=== PATIENT | female | born 1995 | race African-American/Black ===

== ENCOUNTER 2019-09-24 18:18 | Emergency (ER) | payer MEDICAID ==
[~2019-09-24] VITALS: Ht 160 cm; Wt 42.6 kg
--- NOTE | 2019-09-24 18:39 | Emergency Room Report ---
History of Present Illness General Chief Complaint: Pain Source: Patient Present Illness HPI Patient is a 24-year-old female who presents after increased left ankle pain. Pain has been present for approximately 3 weeks after trauma. Patient states that she had struck her ankle on a plastic cart and subsequently began having pain. She been able to ambulate normally since then. Reports having pain to light touch. Denies any fever. Denies any other locations of injury. She is unsure if she is . Allergies: Coded Allergies: No Known Allergies (Unverified , 09/24/19) COVID-19 Screening Contact w/high risk pt: No Recent Travel to affected area: No Experienced COVID-19 symptoms?: No COVID-19 Testing performed SCHOOL COORDINATOR: No Patient History Past Medical History: see triage record Last Menstrual Period: 08/30/19 Reviewed Nursing Documentation: PMH: Agreed; PSxH: Agreed Nursing Documentation-PM Past Medical History: No Stated History Review of Systems All Other Systems: negative except mentioned in HPI Physical Exam Vital Signs Date Time Temp Pulse Resp B/P (MAP) Pulse Ox O2 Delivery O2 Flow Rate FiO2 09/24/19 18:29 98.8 87 17 106/64 (78) 98 Room Air Sp02 EP Interpretation: reviewed, normal General Appearance: normal inspection, well appearing, no apparent distress, alert, GCS 15, non-toxic Head: atraumatic ENT: normal ENT inspection, hearing grossly normal, normal voice Neck: normal inspection, full range of motion, supple, no bony tend Respiratory: normal inspection, lungs clear, normal breath sounds, no respiratory distress, no retraction, no wheezing Cardiovascular #1: regular rate, rhythm, no edema Gastrointestinal: normal inspection, normal bowel sounds, non tender, soft, no guarding, no hernia Genitourinary: no CVA tenderness Musculoskeletal: normal inspection, back normal, normal range of motion Neurologic: alert, motor strength/tone normal, annual campaign manager III-XII nml as tested, oriented x3, responsive, speech normal, normal inspection Psychiatric: normal inspection, judgement/insight normal, mood/affect normal Skin: no rash Medical Decision Making Diagnostic Impression: Primary Impression: Ankle pain, left ER Course Presented for left ankle pain. Differential diagnosis include was not limited to fracture, contusion, sprain among others. Extremity x-ray was ordered due to patient's reported trauma. Patient does not appear to have any evidence of swelling or deformity. Patient was given Douglas wrap. No evidence of infection. she appears to be stable for outpatient follow-up. She was advised to follow- up with her primary care physician for recheck. Last Vital Signs Date Time Temp Pulse Resp B/P (MAP) Pulse Ox O2 Delivery O2 Flow Rate FiO2 09/24/19 18:29 98.8 87 17 106/64 (78) 98 Room Air Status: improved Disposition: HOME, SELF-CARE Condition: Stable Scripts Ibuprofen* (MOTRIN*) 600 Mg Tablet 600 MG ORAL Q8H PRN for FOR PAIN, #30 TAB 0 Refills Prov: Roberto Brand MD 09/24/19 Acetaminophen* (ACETAMINOPHEN EXTRA STRENGTH*) 500 Mg Tablet 500 MG ORAL Q8H PRN for Fever/Headache/Mild Pain, #30 TAB Prov: Roberto Brand MD 09/24/19 Roberto Brand MD Sep 24, 2019 18:39
[2019-09-24 19:00] VITALS: BP 112/66
[2019-09-24] MEDS ORDERED: ACETAMINOPHEN500 M3 ORAL (19:02)
[2019-09-24] MEDS ORDERED: IBUPROFEN600 M1 ORAL (19:02)
[2019-09-24 19:10] VITALS: BP 112/66
--- NOTE | 2019-09-25 12:07 | Diagnostic Imaging Report ---
EXAM: X-RAY XRAY Ankle Compl Min 3v L CLINICAL HISTORY: Ankle pain. COMPARISON: None FINDINGS: Total of 3 views of the left ankle were obtained. Alignment is anatomic. There is no fracture, bony lesions or erosions. Joint spaces are unremarkable. Surrounding soft tissue is normal. IMPRESSION: NO FRACTURE.
== END 2019-09-24 19:10 | disposition home or self-care (01) ==
LOC: EMR 18:45
DX: M25.572 Pain in left ankle and joints of left foot (principal)
CPT/HCPCS: 73610; 81025; Z7502; 99283